=== PATIENT | male | born 1970 | race Caucasian/White ===

== ENCOUNTER 2017-03-28 18:33 | Emergency (ER) | payer OTHER ==
--- NOTE | 2017-04-03 14:44 | ER ---
ADMIT: 03/28/2017 RM/LOC: ER [facility] MR#: [id number] [address] [facility] [id number] [address] [place] [address] Emergency Room Report SEX: M AGE: 46 : 1970 DATE: 03/28/2017 ADDENDUM: CHIEF COMPLAINT: Left knee pain. HISTORY OF PRESENT ILLNESS: This is a 46-year-old male who has had left knee pain since six days ago when he fell on it. He tripped over hose at that time when he was trying to feed his animals. X-ray was done, it is negative for any fracture, over-read by Dr. Maldonado. CLINICAL IMPRESSION: Left knee contusion. HANK Jorgensen / Barry Maldonado MD / sirial JOB #: [id number] CC: Jp Wahl MD, Attending Physician Xuan Easley MD, Family Physician
== END 2017-03-28 20:26 | disposition home or self-care (01) ==
LOC: ER 18:33
DX: S80.02XA Contusion of left knee, initial encounter (principal); I10 Essential (primary) hypertension; E11.9 Type 2 diabetes mellitus without complications; J45.909 Unspecified asthma, uncomplicated; Z98.890 Other specified postprocedural states; Z79.899 Other long term (current) drug therapy; Z88.0 Allergy status to penicillin; W01.0XXA Fall on same level from slipping, tripping and stumbling without subsequent striking against object, initial encounter; Y92.009 Unspecified place in unspecified non-institutional (private) residence as the place of occurrence of the external cause